=== PATIENT | male | born 1960 ===

== ENCOUNTER 2018-06-17 18:06 | Emergency (ER) | payer OTHER ==
[~2018-06-17] VITALS: Ht 172.7 cm; Wt 74.8 kg
[2018-06-17 18:45] VITALS: BP 140/87
--- NOTE | 2018-06-17 18:45 | NUR ---
ED Nurse Note: Patient walked in c/o left hand thumb laceration post slamming between doors x 2 hours. Pt rates pain at 4/10. Pt reports having TDAP vaccine more than 10 years ago.
[2018-06-17] MEDS ORDERED: Tetanus/Diptheria/Pertussis Vaccine 0.5ml Syr IM ONE (19:00)
--- NOTE | 2018-06-17 19:10 | Emergency Room Report ---
History of Present Illness General Chief Complaint: Laceration Source: Patient Present Illness HPI 57-year-old male presents to the emergency department complaining of localized left thumb pain with laceration status post crush injury when his finger was slammed in a door. Patient states bleeding has subsided at this time he states he is not up-to-date with tetanus vaccination. Patient denies taking blood thinning medications. Patient states his pain as 4 out of 10 in severity however upon palpation near the laceration he reports increase of pain to approximately 6 out of 10 in severity. Patient reports some paresthesias directly around the laceration but states sensation to the finger distally. Patient reports that this injury occurred 2 hours ago. Allergies: Coded Allergies: PENICILLINS (Verified Allergy, Unknown, 06/17/18) TETRACYCLINES (Verified Allergy, Unknown, 06/17/18) Patient History Past Medical History: see triage record Past Surgical History: none Pertinent Family History: none Reviewed Nursing Documentation: PMH: Agreed; PSxH: Agreed Nursing Documentation-PMH Past Medical History: No Stated History Review of Systems All Other Systems: negative except mentioned in HPI Physical Exam Vital Signs Date Time Temp Pulse Resp B/P (MAP) Pulse Ox O2 Delivery O2 Flow Rate FiO2 06/17/18 18:35 98.2 58 18 140/87 100 Room Air Sp02 EP Interpretation: reviewed, normal General Appearance: no apparent distress, alert, GCS 15, non-toxic Head: normocephalic, atraumatic Eyes: bilateral eye normal inspection, bilateral eye PERRL ENT: hearing grossly normal, normal voice Neck: full range of motion Respiratory: lungs clear, normal breath sounds, speaking full sentences Cardiovascular #1: regular rate, rhythm, normal capillary refill Musculoskeletal: back normal, gait/station normal, normal range of motion, non- tender Neurologic: alert, oriented x3, responsive, motor strength/tone normal, sensory intact, speech normal, grossly normal Psychiatric: judgement/insight normal Skin: normal color, no rash, warm/dry, well hydrated, laceration - Left thumb lacerations dorsal is superficial and approx. 1 cm in length, the palmar superficial laceration is 0.5cm in length Lymphatic: no adenopathy Procedures Laceration/Wound Repair Laceration/Wound Repair #1: Consent: Verbal Wound Location: upper extremity - dorsal aspect of the left thumb Wound's Depth, Shape: superficial, linear Wound Length (cm): 1 Wound Explored: clean Wound Repaired With: Dermabond Layer Closure?: No Splint Applied?: Yes Type of Splint Applied: finger splint Sling Applied?: No Patient Tolerated: Well Complications: None Laceration/Wound Repair #2: Consent: Verbal Wound Location: upper extremity - palmar aspect of the left thumb Wound's Depth, Shape: superficial, linear Wound Explored: clean Betadine Prep?: Yes Wound Repaired With: Dermabond Sterile Dressing Applied?: No Splint Applied?: Yes Sling Applied?: No Patient Tolerated: Well Complications: None Medical Decision Making PA Attestation Dr. Alfonso is my supervising Physician whom patient management has been discussed with. Diagnostic Impression: Primary Impression: Crushing injury of finger of left hand Additional Impressions: Laceration Finger contusion Qualified Codes: S60.012A - Contusion of left thumb without damage to nail, initial encounter ER Course 57-year-old male presents to the emergency department complaining of localized left thumb pain with laceration status post crush injury when his finger was slammed in a door. Patient states bleeding has subsided at this time he states he is not up-to-date with tetanus vaccination. Patient denies taking blood thinning medications. Patient states his pain as 4 out of 10 in severity however upon palpation near the laceration he reports increase of pain to approximately 6 out of 10 in severity. Patient reports some paresthesias directly around the laceration but states sensation to the finger distally. Patient reports that this injury occurred 2 hours ago. Ddx considered but are not limited to laceration, tendon injury, cellulitis, amputation Vital signs: are WNL, pt. is afebrile H&PE are most consistent with: Left thumb lacerations dorsal is superficial and approx. 1 cm in length, the palmar superficial laceration is 0.5cm in length. ORDERS: none required at this time, the diagnosis is clinical ED INTERVENTIONS: -Tetanus vaccine was administered as pt. vaccination status was unknown. - The wound was copiously irrigated with normal saline, and explored for foreign body for which no FB was found. - The wound was approximated and closed using derma dickerson - Finger Splint applied to the left thumb by orthotic technician. Pt. remains neurovascularly intact. . Discussed with patient: That we make every effort to approximate the laceration as best as we can so that scarring will be as cosmetically pleasing as possible with our limited cosmetic skill set in the Emergency dept. Regardless of our best efforts there will be scarring after laceration repair. The extent of scarring is unknown at this time. DISCHARGE: At this time pt. is stable for d/c to home. Will provide printed patient care instructions, and any necessary prescriptions. Care plan and follow up instructions have been discussed with the patient prior to discharge. Other X-Ray Diagnostic Results Other X-Ray Diagnostic Results : X-Ray ordered: Left Hand # of Views/Limited Vs Complete: 3 View Indication: Pain EP Interpretation: Yes PA Xray: Interpretation reviewed, by supervising MD, and agrees with findings. Interpretation: no dislocation, no soft tissue swelling Impression: No acute disease Electronically Signed by: Sneha Patton PA-C Last Vital Signs Date Time Temp Pulse Resp B/P (MAP) Pulse Ox O2 Delivery O2 Flow Rate FiO2 06/17/18 18:35 98.2 58 18 140/87 100 Room Air Disposition: HOME, SELF-CARE Condition: Stable Scripts Cephalexin* (KEFLEX*) 500 Mg Capsule 500 MG ORAL EVERY 12 HOURS for 7 Days, #14 CAP 0 Refills Prov: Sneha Patton 06/17/18 Patient Instructions: Nonsutured Laceration Care Additional Instructions: Take medications as directed. Follow up with a Primary Care Provider in 3-5 days, even if your symptoms have resolved. --Please review list of primary care clinics, if you do not already have a primary care provider Return sooner to ED if new symptoms occur, or current symptoms become worse. - Please note that this Emergency Department Report was dictated using [employer] molder technology software, occasionally this can lead to erroneous entry secondary to interpretation by the dictation equipment. Sneha Patton Jun 17, 2018 19:10
--- NOTE | 2018-06-17 19:12 | NUR ---
HAND-OFF: Report given to SHAUN Shelton.
--- NOTE | 2018-06-17 19:12 | NUR ---
ED Nurse Note: Received patient from SHAUN Huff. Pt AO4. NAD.
--- NOTE | 2018-06-17 20:13 | Diagnostic Imaging Report ---
EXAM: XR Left Hand Complete, 3 or More Views CLINICAL HISTORY: PAIN TECHNIQUE: Frontal, lateral and oblique views of the left hand. COMPARISON: No relevant prior studies available. FINDINGS: Bones/joints: No acute displaced fracture or dislocation. Soft tissues: Unremarkable. No radiopaque foreign body. IMPRESSION: No acute displaced fracture or dislocation.
[2018-06-17] MEDS ORDERED: CEPHALEXIN500 MG ORAL (20:14)
[2018-06-17 20:20] VITALS: BP 140/87
--- NOTE | 2018-06-17 20:20 | NUR ---
ED Nurse Note: Patient cleared for discharge per ERMD. AO4. NAD. VSS. Patient given prescriptions and discharge instructions; verbalized understanding. ID band removed. Patient ambulated out with all personal belongings with steady gait.
== END 2018-06-17 20:20 | disposition home or self-care (01) ==
LOC: EMR 19:57
DX: S67.02XA Crushing injury of left thumb, initial encounter (principal); S61.012A Laceration without foreign body of left thumb without damage to nail, initial encounter; S60.012A Contusion of left thumb without damage to nail, initial encounter; W23.0XXA Caught, crushed, jammed, or pinched between moving objects, initial encounter; Y92.9 Unspecified place or not applicable; Z88.0 Allergy status to penicillin; Z88.8 Allergy status to other drugs, medicaments and biological substances; Z23 Encounter for immunization
CPT/HCPCS: 12001; 73130; 90471; 90715; 99283; Z7502